=== PATIENT | female | born 1950 | race Caucasian/White ===

== ENCOUNTER 2020-03-06 10:46 | Emergency (ER) | payer MEDICARE, SELFPAY ==
[2020-03-06 11:02] VITALS: BP 127/72; PULSE 79; RESP 16; TEMP 37.1; O2SAT 98; BMI 24.7
[2020-03-06 11:53] LABS: Basophils # 0.1 10^3/uL (0.0-0.1); Eosinophils # 0.1 10^3/uL (0.0-0.8); Eosinophils % 0.8 %; Hematocrit 32.6 % (37.0-47.0); Hemoglobin 10.1 g/dL (11.5-15.3); Lymphocytes # 2.6 10^3/uL (0.8-4.8); Lymphocytes % 35.8 %; Mean Corpuscular Hemoglobin 26.9 pg (28.0-34.0); Mean Corpuscular Volume 86.9 fL (81-99); Mean Platelet Volume 10.2 fL (7.4-10.4); Monocytes # 0.7 10^3/uL (0.2-0.9); Monocytes % 9.4 %; Neutrophils # 3.9 10^3/uL (1.8-7.7); Neutrophils % 52.9 %; Nucleated Red Blood Cells % 0 %; Platelet Count 315 10^3/cmm (130-400); Red Blood Count 3.75 10^6/uL (4.1-5.3); Red Cell Distribution Width 16.6 % (12.1-15.1); White Blood Count 7.4 10^3/uL (4.0-10.0)
--- NOTE | 2020-03-06 12:00 | W.ED.PSYCH ---
HPI - Psych General: Chief Complaint: Psychiatric Symptoms Stated Complaint: SEEING BUGS IN HER BODY Time Seen by Provider: 03/06/20 11:23 Source: patient History of Present Illness: HPI Narrative: Patient is a 69-year-old female patient who was brought in today for evaluation. Her complaints are she is seeing bugs all over her body, digging into her skin and biting her. She says the bugs are all over her house in her clothes and everywhere. She denies any prior psychiatric history. She denies drug use, alcohol, cigarette smoking. She says this has been going on for about 10 days. She is here to be evaluated. She denies suicidal or homicidal ideation. Associated symptoms: Reports visual hallucinations Review of Systems General: Reports: 10 or more systems reviewed and unremarkable except in HPI and below Const: Denies: fever, chills or body aches Eyes: Denies: change in vision or blurry vision ENMT: Denies: throat pain, enlarged tonsils, painful swallowing, hoarseness, mouth pain or swelling of lips/tongue Card: Reports: chest pain; Denies: palpitations, irregular heart rhythm, edema or swelling of feet/ankles Resp: Denies: shortness of breath, productive cough or non-productive cough GI: Denies: abdominal pain, nausea or vomiting : Denies: flank pain, difficulty urinating, painful urination, urinary frequency, urinary urgency or urinary hesitancy Musc: Denies: neck pain, back pain or extremity swelling Skin/Breast: Denies: rash, itching or redness Neuro: Denies: headache, numbness in extremities or weakness in extremities Psych: Reports: visual hallucinations and tactile hallucinations Endo: Denies: excessive urination, excessive thirst or tired all the time PFS ED PFSH: Social History Smoking and tobacco status: never smoked Physical Exam Const: COMMON NORMALS: no apparent distress, average body habitus, oriented x3, no limitations, healthy appearing, alert and well nourished HENMT: COMMON NORMALS: normocephalic, head/scalp atraumatic and moist oral mucous membranes HEAD & SCALP: normocephalic and atraumatic Eye: COMMON NORMALS: PERRL, EOMs intact bilaterally, conjunctivae normal and no scleral icterus CONJUNCTIVA: Yes conjunctivae normal PUPIL: Yes PERRL Neck/C-Spine: COMMON NORMALS: full ROM, supple, no meningeal signs, no JVD and no carotid bruits Chest: COMMONS NORMALS: inspection of chest normal and palpation of chest normal Resp: COMMON NORMALS: normal respiratory effort, no retractions, no use of accessory muscles, clear to auscultation bilaterally and percussion normal AUSCULTATION: clear to auscultation bilaterally PERCUSSION: percussion normal Cardio: COMMON NORMALS: no JVD, regular rate, regular rhythm, S1 normal heart sound, S2 normal heart sound, no gallops, no clicks, no murmurs, no rub and peripheral pulses 2+ throughout RATE: regular rate RHYTHM: regular rhythm HEART SOUNDS: S1 normal and S2 normal PERIPHERAL PULSES: pulses 2+ throughout GI: COMMON NORMALS: normal to inspection, nondistended, normoactive bowel sounds, soft to palpation, non-tender, no hepatosplenomegaly, no masses and no bruits PALPATION: Yes soft and Yes no hepatosplenomegaly : COMMON NORMALS: Yes no CVA tenderness BLADDER/KIDNEY EXAM: Yes no CVA tenderness Back/Pelvis: COMMON NORMALS: no CVA tenderness Extremity: COMMON NORMALS: normal to inspection, full ROM, normal capillary refill, no calf tenderness and no pedal edema Neuro: COMMON NORMALS: oriented x3 SENSORIUM/ORIENTATION: Yes alert MENINGEAL SIGNS: Yes no meningeal signs Skin: COMMON NORMALS: no rashes or lesions noted, no wounds, skin turgor normal, no jaundice, no petechiae and no mottling GENERAL SKIN EXAM: no rashes or lesions noted and turgor normal MDM - Psych MDM Narrative: Medical decision making narrative: 69-year-old female patient with no prior psychiatric history who presents to the emergency department with a persistent thoughts of having bugs on her skin. Evaluation is otherwise unremarkable other than mildly depressed TSH with suggestions of hyperthyroidism. She is discharged home to follow-up with her primary care provider, behavioral health, and neurology. She was started on Abilify. She was evaluated and examined by the psychiatrist in the emergency department and was found to have no acute psychiatric emergency. Medical Records: Attestation: I reviewed the patient's medical records. Lab Data: Labs: Lab Results 03/06/20 03/06/20 03/06/20 Range/Units 11:43 11:43 11:43 WBC 7.4 (4.0-10.0) 10^3/ uL RBC 3.75 L (4.1-5.3) 10^6/u L Hgb 10.1 L (11.5-15.3) g/dL Hct 32.6 L (37.0-47.0) % MCV 86.9 (81-99) fL MCH 26.9 L (28.0-34.0) pg MCHC 31.0 (30.0-36.0) g/dL RDW 16.6 H (12.1-15.1) % Plt Count 315 (130-400) 10^3/c mm MPV 10.2 (7.4-10.4) fL Neut % (Auto) 52.9 % Lymph % (Auto) 35.8 % [place] % (Auto) 9.4 % Eos % (Auto) 0.8 % Baso % (Auto) 1.0 % Neut # (Auto) 3.9 (1.8-7.7) 10^3/u L Lymph # (Auto) 2.6 (0.8-4.8) 10^3/u L [place] # (Auto) 0.7 (0.2-0.9) 10^3/u L Eos # (Auto) 0.1 (0.0-0.8) 10^3/u L Baso # (Auto) 0.1 (0.0-0.1) 10^3/u L Nucleated RBC % (a uto) 0 % Nucleated RBCs # 0.0 /100WBC Sodium 138 (136-145) mmol/L Potassium 3.4 L (3.5-5.1) mmol/L Chloride 101 (98-107) mmol/L Carbon Dioxide 27 (22-29) mmol/L Anion Gap 13.4 (5-19) BUN 11 (8-23) mg/dL Creatinine 0.7 (0.5-0.9) mg/dL Glucose 112 (65-115) mg/dL Calculated Osmolal ity 283 L (285-295) mOsm/k g Calcium 9.1 (8.5-10.5) mg/dL Total Bilirubin 0.3 (0.15-1.2) mg/dL AST 18 (0-32) U/L ALT 9 (0-33) U/L Alkaline Phosphata se 70 (35-105) IU/L Total Protein 6.6 (6.6-8.7) g/dL Albumin 4.0 (3.5-5.2) g/dL Globulin 2.6 (1.3-4.6) g/dL TSH 0.25 L (0.27-4.20) uIU/ mL Free T4 1.10 (0.82-1.77) ng/d L Urine Color (Yellow) Urine Appearance (CLEAR) Urine pH (5-7) Ur Specific Gravit y (1.005-1.030) Urine Protein (Negative) Urine Glucose (UA) (Normal) Urine Ketones (Negative) Urine Blood (Negative) Urine Nitrate (Negative) Urine Bilirubin (NEGATIVE) Urine Urobilinogen (Negative) mg/dL Ur Leukocyte Denae ase (Negative) Urine RBC (0-2) /hpf Urine WBC (0-5) /hpf Ur Squamous Epith Cells (0-5) Urine Bacteria (NONE) Salicylates < 0.3 L (3-10) mg/dL Urine Opiates Scre en (Negative) ng/mL Acetaminophen < 5.0 L (10-30) ug/mL Ur Barbiturates Sc reen (Negative) ng/mL Ur Phencyclidine S crn (Negative) ng/mL Ur Amphetamines Sc reen (Negative) ng/mL U Benzodiazepines Scrn (Negative) ng/mL Urine Cocaine Scre en (Negative) ng/mL U Marijuana (THC) Screen (Negative) ng/mL Ethyl Alcohol < 10 (0-10) mg/dL 03/06/20 03/06/20 Range/Units 13:36 13:36 WBC (4.0-10.0) 10^3/ uL RBC (4.1-5.3) 10^6/u L Hgb (11.5-15.3) g/dL Hct (37.0-47.0) % MCV (81-99) fL MCH (28.0-34.0) pg MCHC (30.0-36.0) g/dL RDW (12.1-15.1) % Plt Count (130-400) 10^3/c mm MPV (7.4-10.4) fL Neut % (Auto) % Lymph % (Auto) % [place] % (Auto) % Eos % (Auto) % Baso % (Auto) % Neut # (Auto) (1.8-7.7) 10^3/u L Lymph # (Auto) (0.8-4.8) 10^3/u L [place] # (Auto) (0.2-0.9) 10^3/u L Eos # (Auto) (0.0-0.8) 10^3/u L Baso # (Auto) (0.0-0.1) 10^3/u L Nucleated RBC % (a uto) % Nucleated RBCs # /100WBC Sodium (136-145) mmol/L Potassium (3.5-5.1) mmol/L Chloride (98-107) mmol/L Carbon Dioxide (22-29) mmol/L Anion Gap (5-19) BUN (8-23) mg/dL Creatinine (0.5-0.9) mg/dL Glucose (65-115) mg/dL Calculated Osmolal ity (285-295) mOsm/k g Calcium (8.5-10.5) mg/dL Total Bilirubin (0.15-1.2) mg/dL AST (0-32) U/L ALT (0-33) U/L Alkaline Phosphata se (35-105) IU/L Total Protein (6.6-8.7) g/dL Albumin (3.5-5.2) g/dL Globulin (1.3-4.6) g/dL TSH (0.27-4.20) uIU/ mL Free T4 (0.82-1.77) ng/d L Urine Color Yellow (Yellow) Urine Appearance Clear (CLEAR) Urine pH 5 (5-7) Ur Specific Gravit y 1.020 (1.005-1.030) Urine Protein Neg (Negative) Urine Glucose (UA) Norm (Normal) Urine Ketones Negative (Negative) Urine Blood Neg (Negative) Urine Nitrate Positive H (Negative) Urine Bilirubin 1+ H (NEGATIVE) Urine Urobilinogen 1 H (Negative) mg/dL Ur Leukocyte Denae ase 1+ H (Negative) Urine RBC None (0-2) /hpf Urine WBC 5-10 H (0-5) /hpf Ur Squamous Epith Cells 10-15 H (0-5) Urine Bacteria 4+ H (NONE) Salicylates (3-10) mg/dL Urine Opiates Scre en Negative (Negative) ng/mL Acetaminophen (10-30) ug/mL Ur Barbiturates Sc reen Negative (Negative) ng/mL Ur Phencyclidine S crn Negative (Negative) ng/mL Ur Amphetamines Sc reen Negative (Negative) ng/mL U Benzodiazepines Scrn Positive H (Negative) ng/mL Urine Cocaine Scre en Negative (Negative) ng/mL U Marijuana (THC) Screen Negative (Negative) ng/mL Ethyl Alcohol (0-10) mg/dL Discharge Plan Discharge Patient Disposition: Home, Self-Care Clinical Impression: Psychogenic formication Condition: Stable Prescriptions: New Abilify 5 mg tablet 5 mg PO DAILY Qty: 30 RF: 0 No Action Xanax 1 mg Tablet 1 mg PO TID PRN (Reason: Anxiety) RF: 0 Mobic 15 mg Tablet 15 mg PO DAILY RF: 0 Aspir-81 81 mg Tablet,Delayed Release (Dr/Ec) 81 mg PO DAILY RF: 0 acyclovir 800 mg tablet See Rx Instructions .ROUTE .COMPLEX RF: 0 ropinirole 2 mg Tablet See Rx Instructions .ROUTE .COMPLEX RF: 0 Nexium 40 mg Capsule,Delayed Release(Dr/Ec) 40 mg PO DAILY RF: 0 losartan 25 mg Tablet 25 mg PO DAILY RF: 0 ibuprofen 400 mg Tablet 400 mg PO TID PRN (Reason: Pain) RF: 0 Nitrostat 0.4 mg Tablet, Sublingual 0.4 mg SUBLINGUAL Q5M PRN (Reason: Chest Pain) RF: 0 Colace 100 mg Capsule 100 mg PO BID PRN (Reason: UNKNOWN) RF: 0 Lidocaine Viscous 2 % solution See Rx Instructions .ROUTE .COMPLEX RF: 0 estradiol 0.01 % (0.1 mg/gram) cream See Rx Instructions .ROUTE .COMPLEX RF: 0 Ambien 10 mg Tablet 10 mg PO BEDTIME RF: 0 Nasal Moisturizing 0.65 % Aerosol,[place] See Rx Instructions .ROUTE .COMPLEX RF: 0 Cymbalta 30 mg Capsule,Delayed Release(Dr/Ec) 30 mg PO TID RF: 0 Amitiza 24 mcg Capsule 24 mcg PO BID RF: 0 loratadine 10 mg Capsule 10 mg PO DAILY PRN (Reason: Allergy Symptoms) RF: 0 Discharge Orders: Discharge Order (Routine); Ordered 03/06/20 Ordered By: Holley Corbett Referrals: Domitila Russell MD [Physician] - 2 weeks Alexander Patel DO [Primary Care Provider] - 1-3 days [facility] [place] [Staff Physician] - 1 week Araceli Damon NP [Family Provider] - 7-10 days Activity Restrictions/Additional Instructions: Return for any new or worsening symptoms. Follow-up with your primary care provider within 3 days. You will be contacted by the case management team to schedule appointment with neurology and behavioral health. Take the new medication as prescribed. Discharge Date/Time: 03/06/20 18:02 Coding Level of Care Code ED [employer] Operator for Chg Fwd Exam Comprehensive
[2020-03-06 12:18] LABS: Alanine Aminotransferase 9 U/L (0-33); Alkaline Phosphatase 70 IU/L (35-105); Anion Gap 13.4 (5-19); Blood Urea Nitrogen 11 mg/dL (8-23); Calcium 9.1 mg/dL (8.5-10.5); Carbon Dioxide 27 mmol/L (22-29); Chloride 101 mmol/L (98-107); Globulin 2.6 g/dL (1.3-4.6); Glucose 112 mg/dL (65-115); Osmolality Calculated 283 mOsm/kg (285-295); Potassium 3.4 mmol/L (3.5-5.1); Sodium 138 mmol/L (136-145); Thyroid Stimulating Hormone 0.25 uIU/mL (0.27-4.20); Total Bilirubin 0.3 mg/dL (0.15-1.2); Total Protein 6.6 g/dL (6.6-8.7)
[2020-03-06 12:25] LABS: Acetaminophen < 5.0 ug/mL (10-30); Alcohol Level < 10 mg/dL (0-10); Aspartate Amino Transferase 18 U/L (0-32); Salicylate < 0.3 mg/dL (3-10)
[2020-03-06 14:06] LABS: Amphetamines Screen Urine Negative (Negative); Barbiturates Screen Urine Negative (Negative); Benzodiazepines Screen Urine Positive (Negative); Cocaine Screen Urine Negative (Negative); Opiate Screen Urine Negative (Negative); PCP Screen Urine Negative (Negative); THC Screen Urine Negative (Negative)
[2020-03-06 14:27] LABS: Add Urine Microscopic? YES; Bilirubin Urine 1+ (NEGATIVE); Blood Urine Neg (Negative); Glucose Urine UA Norm (Normal); Ketones Urine Negative (Negative); Leukocyte Esterase Urine 1+ (Negative); Nitrate Urine Positive (Negative); Protein Urine Neg (Negative); Urine Appearance Clear (CLEAR); Urine Color Yellow (Yellow); Urobilinogen Urine 1 mg/dL (Negative); pH Urine 5 (5-7)
[2020-03-06 14:28] LABS: Add Urine Culture? Yes; Bacteria Urine 4+
--- NOTE | 2020-03-08 08:55 | DCPLANNER ---
Addendum entered by Treva Shaikh 03/08/20 09:03: manager policy also had message to speak with patient about [facility] services. manager policy called phone number [phone], was told that no one by that name was with that phone number. Original Note: manager policy had message to schedule a follow up appointment for patient with Dr. Russell. manager policy called the office of Dr. Russell, spoke with Tequila. A follow up appointment was scheduled for Thursday, May 09, 2020 at 11:[address] Russell. Clinic will call patient with appointment information.
--- NOTE | 2020-05-11 14:44 | DCPLANNER ---
Patient did not attend appointment scheduled for 05.09.[address] Russell.
== END 2020-03-06 18:02 | disposition home or self-care (01) ==
PROVIDERS: Emergency Provider Family Medicine; Family Provider Nurse Practitioner Family; PCP Family Medicine
DX: F45.8 Other somatoform disorders (principal); Z79.82 Long term (current) use of aspirin; Z79.899 Other long term (current) drug therapy
CPT/HCPCS: 12345; 80053; 80306; 80307; 81001; 84439; 84443; 85025; 87077; 87086; 87186; 99282; 99283

== ENCOUNTER 2020-03-08 14:19 | Emergency (ER) | payer MEDICARE, SELFPAY ==
[2020-03-08 14:43] VITALS: BP 142/61; PULSE 100; RESP 18; TEMP 36.8; O2SAT 97; BMI 24.1
[2020-03-08 15:17] LABS: Basophils # 0.1 10^3/uL (0.0-0.1); Basophils % 0.6 %; Eosinophils # 0.1 10^3/uL (0.0-0.8); Eosinophils % 0.7 %; Hematocrit 33.1 % (37.0-47.0); Hemoglobin 10.3 g/dL (11.5-15.3); Lymphocytes # 2.9 10^3/uL (0.8-4.8); Lymphocytes % 30.4 %; Mean Corpuscular HGB Conc 31.1 g/dL (30.0-36.0); Mean Corpuscular Hemoglobin 27.3 pg (28.0-34.0); Mean Corpuscular Volume 87.8 fL (81-99); Mean Platelet Volume 9.2 fL (7.4-10.4); Monocytes # 0.7 10^3/uL (0.2-0.9); Monocytes % 7.6 %; Neutrophils # 5.8 10^3/uL (1.8-7.7); Neutrophils % 60.5 %; Nucleated Red Blood Cells % 0 %; Platelet Count 428 10^3/cmm (130-400); Red Blood Count 3.77 10^6/uL (4.1-5.3); Red Cell Distribution Width 16.8 % (12.1-15.1); White Blood Count 9.6 10^3/uL (4.0-10.0)
--- NOTE | 2020-03-08 15:34 | CT_ITS ---
WS: [id number] CT HEAD TECHNIQUE: Noncontrast CT of the head obtained from the skullbase to the vertex. CLINICAL INFORMATION: ams COMPARISON: None. DLP: 757.[address] scans at [facility] use at least one of these dose optimization techniques: automat ed exposure control; mA and/or kV adjustment per patient size (includes targeted exams where dose is matched to clinical indication); or iterative reconstruction. FINDINGS: No evidence of intracranial hemorrhage or mass effect. Ventricular system and basal cisterns are morrow nt. Mild small vessel changes with mild parenchymal volume loss. No extra-axial fluid collections. No evidence of mass or mass effect. Normal cook-white differentiation. Incidental slightly low-lying ce rebellar tonsils. Intracranial vascular calcification. Mild mucosal thickening in the paranasal sinuses. Mastoid air cells well aerated. Notified Edgar Pinto DO at 03/08/2020 4:[address]/CT head wo con* [id number] IMPRESSION: 1. No evidence of intracranial hemorrhage or mass effect. 2. Mild small vessel changes. Mild parenchymal volume loss. 3. No acute intracranial findings.
--- NOTE | 2020-03-08 15:34 | ECG_ITS ---
Measurements Intervals [place] Rate: 77 P: 59 [place]: 160 QRS: 66 QRSD: 68 T: 82 QT: 353 QTc: [address] & T-WAVE ABNORMALITY No previous ECG available for comparison Electronically Signed On 03-09-2020 15:23:44 CDT by Hanane Snyder M.[email or web address]
[2020-03-08 15:36] LABS: Alanine Aminotransferase 11 U/L (0-33); Albumin Level 4.2 g/dL (3.5-5.2); Alkaline Phosphatase 77 IU/L (35-105); Anion Gap 15.7 (5-19); Aspartate Amino Transferase 17 U/L (0-32); Blood Urea Nitrogen 13 mg/dL (8-23); Calcium 9.4 mg/dL (8.5-10.5); Carbon Dioxide 26 mmol/L (22-29); Chloride 99 mmol/L (98-107); Globulin 2.9 g/dL (1.3-4.6); Glucose 114 mg/dL (65-115); Osmolality Calculated 283 mOsm/kg (285-295); Sodium 138 mmol/L (136-145); Total Bilirubin 0.3 mg/dL (0.15-1.2); Total Protein 7.1 g/dL (6.6-8.7)
--- NOTE | 2020-03-08 15:43 | ED_ITS ---
Documented by User: Bill Holden MD 03/08/20 22:43 HPI - Psych General: Chief Complaint: Psychiatric Symptoms Stated Complaint: HALLUCINATIONS Time Seen by Provider: 03/08/20 15:20 Source: patient and family Mode of arrival: ambulatory Limitations: no limitations History of Present Illness: HPI Narrative: 69-year-old female who presents here with hallucinations. Per family patient has been seeing bugs all over the place and was even carrying her feces in a bag thinking they were bugs in them. She has been chasing bugs around the house thinks that she is swallowing bugs. Family has become very concerned she has had worsening hallucinations and they are scared she may harm herself trying to exterminate the bugs. Patient was seen here 2 days ago for same and had a normal work-up. Patient here went to speak and her she is not suicidal homicidal but does have active hallucinations and is on multiple different psychiatric meds. Onset (ago): week(s) Associated symptoms: Reports visual hallucinations Review of Systems Const: Denies: fever, chills, body aches or change in appetite Eyes: Denies: blurry vision or eye discomfort ENMT: Denies: throat pain or dental pain Card: Denies: chest pain Resp: Denies: shortness of breath GI: Denies: abdominal pain, nausea, vomiting or diarrhea : Denies: painful urination Musc: Denies: neck pain or back pain Skin/Breast: Denies: rash Neuro: Denies: headache Psych: Reports: visual hallucinations Saurav/Lymph: Denies: easy bruising All/Imm: Denies: hives PFSH ED PFSH: Social History Smoking and tobacco status: never smoked Physical Exam Const: COMMON NORMALS: no apparent distress, oriented x3 and healthy appearing HENMT: COMMON NORMALS: normocephalic and head/scalp atraumatic HEAD & SCALP: normocephalic and atraumatic Eye: COMMON NORMALS: PERRL and EOMs intact bilaterally PUPIL: Yes PERRL Neck/C-Spine: COMMON NORMALS: full ROM and supple Chest: COMMONS NORMALS: inspection of chest normal and palpation of chest normal Resp: COMMON NORMALS: normal respiratory effort, no retractions, no use of accessory muscles and clear to auscultation bilaterally AUSCULTATION: clear to auscultation bilaterally Cardio: COMMON NORMALS: regular rate, regular rhythm and no murmurs RATE: regular rate RHYTHM: regular rhythm GI: COMMON NORMALS: normal to inspection, nondistended, normoactive bowel sounds, soft to palpation, non-tender and no masses PALPATION: Yes soft Extremity: COMMON NORMALS: normal to inspection and full ROM Neuro: COMMON NORMALS: oriented x3, moves all extremities and no focal motor deficits Psych: ATTITUDE: Yes paranoid ACTIVITY/MOTOR BEHAVIOR: Yes fidgeting and Y es disorganized THOUGHT CONTENT: Yes hallucination(s) Skin: COMMON NORMALS: no rashes or lesions noted and no wounds GENERAL SKIN EXAM: no rashes or lesions noted MDM - Psych MDM Narrative: Medical decision making narrative: Patient presents here with acute psychosis and is seeing bugs. She is not safe on her own and family feel that affidavits want her to be placed in a geriatric psych facility. I agree that she needs to be placed as well. Patient's medically cleared after her low potassium was treated. Patient is pending placement care turned over to Dr. Elliott. Lab Data: Labs: Lab Results 03/08/20 03/08/20 03/08/20 Range/Units 15:06 15:06 18:08 WBC 9.6 (4.0-10.0) 10^3/ uL RBC 3.77 L (4.1-5.3) 10^6/u L Hgb 10.3 L (11.5-15.3) g/dL Hct 33.1 L (37.0-47.0) % MCV 87.8 (81-99) fL MCH 27.3 L (28.0-34.0) pg MCHC 31.1 (30.0-36.0) g/dL RDW 16.8 H (12.1-15.1) % Plt Count 428 H (130-400) 10^3/c mm MPV 9.2 (7.4-10.4) fL Neut % (Auto) 60.5 % Lymph % (Auto) 30.4 % [place] % (Auto) 7.6 % Eos % (Auto) 0.7 % Baso % (Auto) 0.6 % Neut # (Auto) 5.8 (1.8-7.7) 10^3/u L Lymph # (Auto) 2.9 (0.8-4.8) 10^3/u L [place] # (Auto) 0.7 (0.2-0.9) 10^3/u L Eos # (Auto) 0.1 (0.0-0.8) 10^3/u L Baso # (Auto) 0.1 (0.0-0.1) 10^3/u L Nucleated RBC % (a uto) 0 % Nucleated RBCs # 0.0 /100WBC Sodium 138 (136-145) mmol/L Potassium 2.7 L* (3.5-5.1) mmol/L Chloride 99 (98-107) mmol/L Carbon Dioxide 26 (22-29) mmol/L Anion Gap 15.7 (5-19) BUN 13 (8-23) mg/dL Creatinine 0.7 (0.5-0.9) mg/dL Glucose 114 (65-115) mg/dL Calculated Osmolal ity 283 L (285-295) mOsm/k g Calcium 9.4 (8.5-10.5) mg/dL Total Bilirubin 0.3 (0.15-1.2) mg/dL AST 17 (0-32) U/L ALT 11 (0-33) U/L Alkaline Phosphata se 77 (35-105) IU/L Total Protein 7.1 (6.6-8.7) g/dL Albumin 4.2 (3.5-5.2) g/dL Globulin 2.9 (1.3-4.6) g/dL Urine Color (Yellow) Urine Appearance (CLEAR) Urine pH (5-7) Ur Specific Gravit y (1.005-1.030) Urine Protein (Negative) Urine Glucose (UA) (Normal) Urine Ketones (Negative) Urine Blood (Negative) Urine Nitrate (Negative) Urine Bilirubin (NEGATIVE) Urine Urobilinogen (Negative) mg/dL Ur Leukocyte Denae ase (Negative) Salicylates < 0.3 L (3-10) mg/dL Urine Opiates Scre en Negative (Negative) ng/mL Acetaminophen < 5.0 L (10-30) ug/mL Ur Barbiturates Sc reen Negative (Negative) ng/mL Ur Phencyclidine S crn Negative (Negative) ng/mL Ur Amphetamines Sc reen Negative (Negative) ng/mL U Benzodiazepines Scrn Positive H (Negative) ng/mL Urine Cocaine Scre en Negative (Negative) ng/mL U Marijuana (THC) Screen Negative (Negative) ng/mL Ethyl Alcohol < 10 (0-10) mg/dL 03/08/20 03/08/20 Range/Units 18:08 18:40 WBC (4.0-10.0) 10^3/ uL RBC (4.1-5.3) 10^6/u L Hgb (11.5-15.3) g/dL Hct (37.0-47.0) % MCV (81-99) fL MCH (28.0-34.0) pg MCHC (30.0-36.0) g/dL RDW (12.1-15.1) % Plt Count (130-400) 10^3/c mm MPV (7.4-10.4) fL Neut % (Auto) % Lymph % (Auto) % [place] % (Auto) % Eos % (Auto) % Baso % (Auto) % Neut # (Auto) (1.8-7.7) 10^3/u L Lymph # (Auto) (0.8-4.8) 10^3/u L [place] # (Auto) (0.2-0.9) 10^3/u L Eos # (Auto) (0.0-0.8) 10^3/u L Baso # (Auto) (0.0-0.1) 10^3/u L Nucleated RBC % (a uto) % Nucleated RBCs # /100WBC Sodium 140 (136-145) mmol/L Potassium 3.7 (3.5-5.1) mmol/L Chloride 105 (98-107) mmol/L Carbon Dioxide 22 (22-29) mmol/L Anion Gap 16.7 (5-19) BUN 13 (8-23) mg/dL Creatinine 0.5 (0.5-0.9) mg/dL Glucose 87 (65-115) mg/dL Calculated Osmolal ity 286 (285-295) mOsm/k g Calcium 10.1 (8.5-10.5) mg/dL Total Bilirubin (0.15-1.2) mg/dL AST (0-32) U/L ALT (0-33) U/L Alkaline Phosphata se (35-105) IU/L Total Protein (6.6-8.7) g/dL Albumin (3.5-5.2) g/dL Globulin (1.3-4.6) g/dL Urine Color Yellow (Yellow) Urine Appearance Hazy A (CLEAR) Urine pH 5 (5-7) Ur Specific Gravit y 1.020 (1.005-1.030) Urine Protein Neg (Negative) Urine Glucose (UA) Norm (Normal) Urine Ketones Negative (Negative) Urine Blood Neg (Negative) Urine Nitrate Negative (Negative) Urine Bilirubin Neg (NEGATIVE) Urine Urobilinogen 1 H (Negative) mg/dL Ur Leukocyte Denae ase Negative (Negative) Salicylates (3-10) mg/dL Urine Opiates Scre en (Negative) ng/mL Acetaminophen (10-30) ug/mL Ur Barbiturates Sc reen (Negative) ng/mL Ur Phencyclidine S crn (Negative) ng/mL Ur Amphetamines Sc reen (Negative) ng/mL U Benzodiazepines Scrn (Negative) ng/mL Urine Cocaine Scre en (Negative) ng/mL U Marijuana (THC) Screen (Negative) ng/mL Ethyl Alcohol (0-10) mg/dL Imaging Data^: CT Head: Attestation: I personally reviewed and interpreted this imaging study as follows: Radiologist's impression: [place] [address] CT Scan Report Signed Patient: Radha Mukherjee Unit #: [id number] : [id number] Age/Sex: 69 / F ADM Date: 03/08/20 Loc: ER Room/Bed: Attending Dr: Ordering Provider/Ordering MD: Edgar Pinto DO Date of Service: 03/08/20 Procedure(s): CT head wo con* 25100 Accession Number(s): [id number] Report Number: [id number] WS: [id number] CT HEAD TECHNIQUE: Noncontrast CT of the head obtained from the skullbase to the vertex. CLINICAL INFORMATION: ams COMPARISON: None. DLP: 757.[address] scans at [facility] use at least one of these dose optimization techniques: automated exposure control; mA and/or kV adjustment per patient size (includes targeted exams where dose is matched to clinical indication); or iterative reconstruction. FINDINGS: No evidence of intracranial hemorrhage or mass effect. Ventricular system and basal cisterns are patent. Mild small vessel changes with mild parenchymal volume loss. No extra- axial fluid collections. No evidence of mass or mass effect. Normal cook-white differentiation. Incidental slightly low-lying cerebellar tonsils. Intracranial vascular calcification. Mild mucosal thickening in the paranasal sinuses. Mastoid air cells well aerated. Notified Edgar Pinto DO at 03/08/2020 4:[address]/CT head wo con* 28599 IMPRESSION: 1. No evidence of intracranial hemorrhage or mass effect. 2. Mild small vessel changes. Mild parenchymal volume loss. 3. No acute intracranial findings. Discharge Plan Discharge Patient Disposition: Xfer Other Clinical Impression: Acute psychosis Condition: Stable Discharge Orders: Transfer Out of Facility (Order); Ordered 03/09/20 Ordered By: Sarai Mims Referrals: Alexander Patel DO [Primary Care Provider] - Discharge Date/Time: 03/09/20 08:29 Sign Out Sign Out Data: Patient Sign Out occurred on 03/08/20 at 23:08. Patient's care was discussed, and care was transferred from to Sarai Mims. Coding Level of Care Code ED Brand Activation Manager for Chg Fwd Exam Comprehensive Documented by User: Sarai Mims 03/09/20 01:41 HPI - Psych General: Chief Complaint: Psychiatric Symptoms Stated Complaint: HALLUCINATIONS Time Seen by Provider: 03/08/20 15:20 [facility] ED PFSH: Social History Smoking and tobacco status: never smoked MDM - Psych MDM Narrative: Medical decision making narrative: The patient has been accept ed at [facility] by Dr. Wahl after the case was reviewed with her. Lab Data: Labs: Lab Results 03/08/20 03/08/20 03/08/20 Range/Units 15:06 15:06 18:08 WBC 9.6 (4.0-10.0) 10^3/ uL RBC 3.77 L (4.1-5.3) 10^6/u L Hgb 10.3 L (11.5-15.3) g/dL Hct 33.1 L (37.0-47.0) % MCV 87.8 (81-99) fL MCH 27.3 L (28.0-34.0) pg MCHC 31.1 (30.0-36.0) g/dL RDW 16.8 H (12.1-15.1) % Plt Count 428 H (130-400) 10^3/c mm MPV 9.2 (7.4-10.4) fL Neut % (Auto) 60.5 % Lymph % (Auto) 30.4 % [place] % (Auto) 7.6 % Eos % (Auto) 0.7 % Baso % (Auto) 0.6 % Neut # (Auto) 5.8 (1.8-7.7) 10^3/u L Lymph # (Auto) 2.9 (0.8-4.8) 10^3/u L [place] # (Auto) 0.7 (0.2-0.9) 10^3/u L Eos # (Auto) 0.1 (0.0-0.8) 10^3/u L Baso # (Auto) 0.1 (0.0-0.1) 10^3/u L Nucleated RBC % (a uto) 0 % Nucleated RBCs # 0.0 /100WBC Sodium 138 (136-145) mmol/L Potassium 2.7 L* (3.5-5.1) mmol/L Chloride 99 (98-107) mmol/L Carbon Dioxide 26 (22-29) mmol/L Anion Gap 15.7 (5-19) BUN 13 (8-23) mg/dL Creatinine 0.7 (0.5-0.9) mg/dL Glucose 114 (65-115) mg/dL Calculated Osmolal ity 283 L (285-295) mOsm/k g Calcium 9.4 (8.5-10.5) mg/dL Total Bilirubin 0.3 (0.15-1.2) mg/dL AST 17 (0-32) U/L ALT 11 (0-33) U/L Alkaline Phosphata se 77 (35-105) IU/L Total Protein 7.1 (6.6-8.7) g/dL Albumin 4.2 (3.5-5.2) g/dL Globulin 2.9 (1.3-4.6) g/dL Urine Color (Yellow) Urine Appearance (CLEAR) Urine pH (5-7) Ur Specific Gravit y (1.005-1.030) Urine Protein (Negative) Urine Glucose (UA) (Normal) Urine Ketones (Negative) Urine Blood (Negative) Urine Nitrate (Negative) Urine Bilirubin (NEGATIVE) Urine Urobilinogen (Negative) mg/dL Ur Leukocyte Denae ase (Negative) Salicylates < 0.3 L (3-10) mg/dL Urine Opiates Scre en Negative (Negative) ng/mL Acetaminophen < 5.0 L (10-30) ug/mL Ur Barbiturates Sc reen Negative (Negative) ng/mL Ur Phencyclidine S crn Negative (Negative) ng/mL Ur Amphetamines Sc reen Negative (Negative) ng/mL U Benzodiazepines Scrn Positive H (Negative) ng/mL Urine Cocaine Scre en Negative (Negative) ng/mL U Marijuana (THC) Screen Negative (Negative) ng/mL Ethyl Alcohol < 10 (0-10) mg/dL 03/08/20 03/08/20 Range/Units 18:08 18:40 WBC (4.0-10.0) 10^3/ uL RBC (4.1-5.3) 10^6/u L Hgb (11.5-15.3) g/dL Hct (37.0-47.0) % MCV (81-99) fL MCH (28.0-34.0) pg MCHC (30.0-36.0) g/dL RDW (12.1-15.1) % Plt Count (130-400) 10^3/c mm MPV (7.4-10.4) fL Neut % (Auto) % Lymph % (Auto) % [place] % (Auto) % Eos % (Auto) % Baso % (Auto) % Neut # (Auto) (1.8-7.7) 10^3/u L Lymph # (Auto) (0.8-4.8) 10^3/u L [place] # (Auto) (0.2-0.9) 10^3/u L Eos # (Auto) (0.0-0.8) 10^3/u L Baso # (Auto) (0.0-0.1) 10^3/u L Nucleated RBC % (a uto) % Nucleated RBCs # /100WBC Sodium 140 (136-145) mmol/L Potassium 3.7 (3.5-5.1) mmol/L Chloride 105 (98-107) mmol/L Carbon Dioxide 22 (22-29) mmol/L Anion Gap 16.7 (5-19) BUN 13 (8-23) mg/dL Creatinine 0.5 (0.5-0.9) mg/dL Glucose 87 (65-115) mg/dL Calculated Osmolal ity 286 (285-295) mOsm/k g Calcium 10.1 (8.5-10.5) mg/dL Total Bilirubin (0.15-1.2) mg/dL AST (0-32) U/L ALT (0-33) U/L Alkaline Phosphata se (35-105) IU/L Total Protein (6.6-8.7) g/dL Albumin (3.5-5.2) g/dL Globulin (1.3-4.6) g/dL Urine Color Yellow (Yellow) Urine Appearance Hazy A (CLEAR) Urine pH 5 (5-7) Ur Specific Gravit y 1.020 (1.005-1.030) Urine Protein Neg (Negative) Urine Glucose (UA) Norm (Normal) Urine Ketones Negative (Negative) Urine Blood Neg (Negative) Urine Nitrate Negative (Negative) Urine Bilirubin Neg (NEGATIVE) Urine Urobilinogen 1 H (Negative) mg/dL Ur Leukocyte Denae ase Negative (Negative) Salicylates (3-10) mg/dL Urine Opiates Scre en (Negative) ng/mL Acetaminophen (10-30) ug/mL Ur Barbiturates Sc reen (Negative) ng/mL Ur Phencyclidine S crn (Negative) ng/mL Ur Amphetamines Sc reen (Negative) ng/mL U Benzodiazepines Scrn (Negative) ng/mL Urine Cocaine Scre en (Negative) ng/mL U Marijuana (THC) Screen (Negative) ng/mL Ethyl Alcohol (0-10) mg/dL Discharge Plan Discharge Patient Disposition: Xfer Other Clinical Impression: Acute psychosis Condition: Stable Discharge Orders: Transfer Out of Facility (Order); Ordered 03/09/20 Ordered By: Sarai Mims Referrals: Alexander Patel DO [Primary Care Provider] - Discharge Date/Time: 03/09/20 08:29 Sign Out Sign Out Data: Patient Sign Out occurred on 03/08/20 at 23:08. Patient's care was discussed, and care was transferred from to Sarai Mims. Coding Level of Care Code ED Brand Activation Manager for Chg Fwd Exam Comprehensive Documented by User: Edgar Pinto DO 03/09/20 14:09 HPI - Psych General: Chief Complaint: Psychiatric Symptoms Stated Complaint: HALLUCINATIONS Time Seen by Provider: 03/08/20 15:20 [facility] ED PFSH: Social History Smoking and tobacco status: never smoked MDM - Psych MDM Narrative: Medical decision making narrative: Patient continued remained stable and we eventually able to make arrangements for transfer. Lab Data: Labs: Lab Results 03/08/20 03/08/20 03/08/20 Range/Units 15:06 15:06 18:08 WBC 9.6 (4.0-10.0) 10^3/ uL RBC 3.77 L (4.1-5.3) 10^6/u L Hgb 10.3 L (11.5-15.3) g/dL Hct 33.1 L (37.0-47.0) % MCV 87.8 (81-99) fL MCH 27.3 L (28.0-34.0) pg MCHC 31.1 (30.0-36.0) g/dL RDW 16.8 H (12.1-15.1) % Plt Count 428 H (130-400) 10^3/c mm MPV 9.2 (7.4-10.4) fL Neut % (Auto) 60.5 % Lymph % (Auto) 30.4 % [place] % (Auto) 7.6 % Eos % (Auto) 0.7 % Baso % (Auto) 0.6 % Neut # (Auto) 5.8 (1.8-7.7) 10^3/u L Lymph # (Auto) 2.9 (0.8-4.8) 10^3/u L [place] # (Auto) 0.7 (0.2-0.9) 10^3/u L Eos # (Auto) 0.1 (0.0-0.8) 10^3/u L Baso # (Auto) 0.1 (0.0-0.1) 10^3/u L Nucleated RBC % (a uto) 0 % Nucleated RBCs # 0.0 /100WBC Sodium 138 (136-145) mmol/L Potassium 2.7 L* (3.5-5.1) mmol/L Chloride 99 (98-107) mmol/L Carbon Dioxide 26 (22-29) mmol/L Anion Gap 15.7 (5-19) BUN 13 (8-23) mg/dL Creatinine 0.7 (0.5-0.9) mg/dL Glucose 114 (65-115) mg/dL Calculated Osmolal ity 283 L (285-295) mOsm/k g Calcium 9.4 (8.5-10.5) mg/dL Total Bilirubin 0.3 (0.15-1.2) mg/dL AST 17 (0-32) U/L ALT 11 (0-33) U/L Alkaline Phosphata se 77 (35-105) IU/L Total Protein 7.1 (6.6-8.7) g/dL Albumin 4.2 (3.5-5.2) g/dL Globulin 2.9 (1.3-4.6) g/dL Urine Color (Yellow) Urine Appearance (CLEAR) Urine pH (5-7) Ur Specific Gravit y (1.005-1.030) Urine Protein (Negative) Urine Glucose (UA) (Normal) Urine Ketones (Negative) Urine Blood (Negative) Urine Nitrate (Negative) Urine Bilirubin (NEGATIVE) Urine Urobilinogen (Negative) mg/dL Ur Leukocyte Denae ase (Negative) Salicylates < 0.3 L (3-10) mg/dL Urine Opiates Scre en Negative (Negative) ng/mL Acetaminophen < 5.0 L (10-30) ug/mL Ur Barbiturates Sc reen Negative (Negative) ng/mL Ur Phencyclidine S crn Negative (Negative) ng/mL Ur Amphetamines Sc reen Negative (Negative) ng/mL U Benzodiazepines Scrn Positive H (Negative) ng/mL Urine Cocaine Scre en Negative (Negative) ng/mL U Marijuana (THC) Screen Negative (Negative) ng/mL Ethyl Alcohol < 10 (0-10) mg/dL 03/08/20 03/08/20 Range/Units 18:08 18:40 WBC (4.0-10.0) 10^3/ uL RBC (4.1-5.3) 10^6/u L Hgb (11.5-15.3) g/dL Hct (37.0-47.0) % MCV (81-99) fL MCH (28.0-34.0) pg MCHC (30.0-36.0) g/dL RDW (12.1-15.1) % Plt Count (130-400) 10^3/c mm MPV (7.4-10.4) fL Neut % (Auto) % Lymph % (Auto) % [place] % (Auto) % Eos % (Auto) % Baso % (Auto) % Neut # (Auto) (1.8-7.7) 10^3/u L Lymph # (Auto) (0.8-4.8) 10^3/u L [place] # (Auto) (0.2-0.9) 10^3/u L Eos # (Auto) (0.0-0.8) 10^3/u L Baso # (Auto) (0.0-0.1) 10^3/u L Nucleated RBC % (a uto) % Nucleated RBCs # /100WBC Sodium 140 (136-145) mmol/L Potassium 3.7 (3.5-5.1) mmol/L Chloride 105 (98-107) mmol/L Carbon Dioxide 22 (22-29) mmol/L Anion Gap 16.7 (5-19) BUN 13 (8-23) mg/dL Creatinine 0.5 (0.5-0.9) mg/dL Glucose 87 (65-115) mg/dL Calculated Osmolal ity 286 (285-295) mOsm/k g Calcium 10.1 (8.5-10.5) mg/dL Total Bilirubin (0.15-1.2) mg/dL AST (0-32) U/L ALT (0-33) U/L Alkaline Phosphata se (35-105) IU/L Total Protein (6.6-8.7) g/dL Albumin (3.5-5.2) g/dL Globulin (1.3-4.6) g/dL Urine Color Yellow (Yellow) Urine Appearance Hazy A (CLEAR) Urine pH 5 (5-7) Ur Specific Gravit y 1.020 (1.005-1.030) Urine Protein Neg (Negative) Urine Glucose (UA) Norm (Normal) Urine Ketones Negative (Negative) Urine Blood Neg (Negative) Urine Nitrate Negative (Negative) Urine Bilirubin Neg (NEGATIVE) Urine Urobilinogen 1 H (Negative) mg/dL Ur Leukocyte Denae ase Negative (Negative) Salicylates (3-10) mg/dL Urine Opiates Scre en (Negative) ng/mL Acetaminophen (10-30) ug/mL Ur Barbiturates Sc reen (Negative) ng/mL Ur Phencyclidine S crn (Negative) ng/mL Ur Amphetamines Sc reen (Negative) ng/mL U Benzodiazepines Scrn (Negative) ng/mL Urine Cocaine Scre en (Negative) ng/mL U Marijuana (THC) Screen (Negative) ng/mL Ethyl Alcohol (0-10) mg/dL Discharge Plan Discharge Patient Disposition: Xfer Other Clinical Impression: Acute psychosis Condition: Stable Discharge Orders: Transfer Out of Facility (Order); Ordered 03/09/20 Ordered By: Sarai Mims Referrals: Alexander Patel DO [Primary Care Provider] - Discharge Date/Time: 03/09/20 08:29 Sign Out Sign Out Data: Patient Sign Out occurred on 03/08/20 at 23:08. Patient's care was discussed, and care was transferred from to Sarai Mims. Coding Level of Care Code ED Brand Activation Manager for Guilhermeg Fwd Exam Comprehensive
[2020-03-08 16:23] LABS: Acetaminophen < 5.0 ug/mL (10-30); Alcohol Level < 10 mg/dL (0-10); Potassium 2.7 mmol/L (3.5-5.1); Salicylate < 0.3 mg/dL (3-10)
[2020-03-08] MEDS: potassium chloride premix 40 MEQ/100 ML PREMIX 25 MEQ IV (17:02)
[2020-03-08 18:14] LABS: Add Urine Microscopic? NO
[2020-03-08 18:36] LABS: Urine Appearance Hazy (CLEAR); Urine Color Yellow (Yellow); pH Urine 5 (5-7)
[2020-03-08 18:37] LABS: Bilirubin Urine Neg (NEGATIVE); Blood Urine Neg (Negative); Glucose Urine UA Norm (Normal); Ketones Urine Negative (Negative); Leukocyte Esterase Urine Negative (Negative); Nitrate Urine Negative (Negative); Protein Urine Neg (Negative); Urobilinogen Urine 1 mg/dL (Negative)
[2020-03-08 18:39] LABS: Amphetamines Screen Urine Negative (Negative); Barbiturates Screen Urine Negative (Negative); Benzodiazepines Screen Urine Positive (Negative); Cocaine Screen Urine Negative (Negative); Opiate Screen Urine Negative (Negative); PCP Screen Urine Negative (Negative); THC Screen Urine Negative (Negative)
[2020-03-08 18:42] VITALS: BP 154/81; PULSE 91; RESP 20; O2SAT 98
[2020-03-08 19:03] LABS: Anion Gap 16.7 (5-19); Blood Urea Nitrogen 13 mg/dL (8-23); Calcium 10.1 mg/dL (8.5-10.5); Carbon Dioxide 22 mmol/L (22-29); Chloride 105 mmol/L (98-107); Glucose 87 mg/dL (65-115); Osmolality Calculated 286 mOsm/kg (285-295); Potassium 3.7 mmol/L (3.5-5.1); Sodium 140 mmol/L (136-145)
[2020-03-08 22:35] VITALS: BP 133/74; PULSE 82; RESP 17; O2SAT 94
--- NOTE | 2020-03-08 22:51 | PC.NURSE ---
Contact Psychiatric Facility [facility] [employer] [facility] Contacted Sandra at [phone], was asked to fax patients labs, current vital signs, and EKG along with other information. Information was faxed at [phone] after obtaining VS and EKG.
--- NOTE | 2020-03-09 00:31 | PC.NURSE ---
[facility] spoke with Rsoa at [phone], stated they had all information needed to make decision as long as patient was completely voluntary. Also stated she would call back after speaking to attending physician.
[2020-03-09] MEDS: ALPRAZolam 0.5 mg Tablet 1 MG PO (05:05)
[2020-03-09 08:27] VITALS: BP 130/80; PULSE 80; RESP 17; O2SAT 97
== END 2020-03-09 08:29 | disposition other institution (70) ==
PROVIDERS: Emergency Medicine; Emergency Provider Emergency Medicine; PCP Family Medicine
DX: F23 Brief psychotic disorder (principal); R44.2 Other hallucinations
CPT/HCPCS: 12345; 36415; 70450; 80048; 80053; 80306; 80307; 81003; 85025; 93005; 96365; 96366; 99284; 99285; J3480

== ENCOUNTER → 2020-06-01 14:52 | Outpatient (BNVA) | payer MEDICARE, MEDICAID, SELFPAY | PROVIDERS: PCP Family Medicine; Visit Provider Psychiatry & Neurology Psychiatry | DX: F41.1 Generalized anxiety disorder (principal); F33.2 Major depressive disorder, recurrent severe without psychotic features | CPT/HCPCS: 99204 ==

== ENCOUNTER → 2020-06-20 07:42 | Outpatient (BNVA) | payer MEDICARE, MEDICAID, SELFPAY | PROVIDERS: PCP Family Medicine; Visit Provider Psychiatry & Neurology Psychiatry | DX: F33.2 Major depressive disorder, recurrent severe without psychotic features (principal); F41.1 Generalized anxiety disorder; F90.2 Attention-deficit hyperactivity disorder, combined type | CPT/HCPCS: 99213 ==

== ENCOUNTER → 2020-07-26 08:27 | Outpatient (BNVA) | payer MEDICARE, MEDICAID, SELFPAY | PROVIDERS: PCP Family Medicine; Visit Provider Psychiatry & Neurology Psychiatry | DX: F33.2 Major depressive disorder, recurrent severe without psychotic features (principal); F41.1 Generalized anxiety disorder | CPT/HCPCS: 99214 ==

== ENCOUNTER → 2020-08-23 08:26 | Outpatient (BNVA) | payer MEDICARE, MEDICAID, SELFPAY | PROVIDERS: PCP Family Medicine; Visit Provider Psychiatry & Neurology Psychiatry | DX: F33.2 Major depressive disorder, recurrent severe without psychotic features (principal); F41.1 Generalized anxiety disorder | CPT/HCPCS: 99213 ==

== ENCOUNTER → 2020-09-21 07:48 | Outpatient (BNVA) | payer MEDICARE, MEDICAID, SELFPAY | PROVIDERS: PCP Family Medicine; Visit Provider Psychiatry & Neurology Psychiatry | DX: F33.2 Major depressive disorder, recurrent severe without psychotic features (principal); F41.1 Generalized anxiety disorder | CPT/HCPCS: 99213 ==

== ENCOUNTER → 2020-11-01 07:44 | Outpatient (BNVA) | payer MEDICARE, MEDICAID, SELFPAY | PROVIDERS: PCP Family Medicine; Visit Provider Nurse Practitioner Psychiatric/Mental Health | DX: F33.2 Major depressive disorder, recurrent severe without psychotic features (principal); F41.1 Generalized anxiety disorder; R41.0 Disorientation, unspecified | CPT/HCPCS: 99212 ==